=== PATIENT | female | born 1945 | race Caucasian/White ===

== ENCOUNTER → 2021-08-22 | Outpatient (CLI) | payer MEDICARE | END | disposition home or self-care (01) | LOC: LAB 15:52 | PROVIDERS: ATTEND Family Medicine | DX: M25.572 Pain in left ankle and joints of left foot (principal) | CPT/HCPCS: 73590; 73610 ==

== ENCOUNTER 2024-07-06 13:37 | Emergency (ER) | payer MEDICARE ==
[~2024-07-06] VITALS: Ht 152.4 cm; Wt 54.4 kg
--- NOTE | 2024-07-06 14:02 | ERN ---
ED Note History of Present Illness Stated Complaint: FORGETFULLNESS AND ANXIETY Chief Complaint: Altered Mental Status Time Seen by MD: 13:47 Dictation: Patient PATIENT IS AN 79-YEAR-OLD FEMALE WHO PRINCIPAL SINCE TO THE EMERGENCY ROOM VIA EMS AFTER A NEIGHBOR CALLED. PER EMS, THE NEIGHBOR SAID SHE CAME TO HER HOME AROUND 13:00 HOURS TODAY WAS VERY CONFUSED AND NOT ACTING HERSELF DID NOT KNOW WHERE SHE WAS OR WHAT WAS GOING ON. SHE STATES PATIENT LIVES ALONE SO LAST KNOWN WELL TIME IS UNKNOWN. CURRENTLY PATIENT IS ALERT AND ORIENTED X1 , ABLE TO ANSWER SIMPLE QUESTIONS REGARDING HER NAME HOWEVER DOES NOT KNOW WHERE SHE IS AT. SHE DOES NIGHT DENIES ANY CHEST PAIN BACK PAIN SOB. NO DRIFT NOTED. SPEECH IS CLEAR. Patient's friend need a at bedside. She was able to find a list of patient's past medical history medications, patient has a history of hypothyroidism, osteoporosis lash hypertension and breast cancer completed her treatment with in 2019. Patient's primary care doctors Dr. Erick Kwon Allergies: Coded Allergies: No Known Drug Allergies (Unverified Allergy, Unknown, 07/06/24) Past Medical History Past Medical History: Cancer Additional Past Medical Hx: BREAST CA Surgical History: Unknown History: Not Applicable RN Note Reviewed/Agreed w/PFSH: Yes Review of System Dictation CONSTITUTIONAL: NEGATIVE EXCEPT FOR HPI HEAD/FACE: NEGATIVE EXCEPT FOR HPI EENT: NEGATIVE EXCEPT FOR HPI RESPIRATORY: NEGATIVE EXCEPT FOR HPI GASTROINTESTINAL/ABDOMINAL: NEGATIVE EXCEPT FOR HPI GENITOURINARY: NEGATIVE EXCEPT FOR HPI MUSCULOSKELETAL: NEGATIVE EXCEPT FOR HPI INTEGUMENTARY: NEGATIVE EXCEPT FOR HPI NEUROLOGICAL/PSYCH: NEGATIVE EXCEPT FOR HPI ALTERED MENTAL STATUS/CONFUSION HEMATOLOGIC/LYMPHATIC: NEGATIVE EXCEPT FOR HPI ALL SYSTEMS NEGATIVE, EXCEPT NOTED ABOVE. 13 POINT REVIEW OF SYSTEMS ASSESSED AND ALL NEGATIVE EXCEPT FOR ABOVE. Initial Vital Sign VS Vital Signs Date Time Temp Pulse Resp B/P (MAP) Pulse Ox O2 Delivery O2 Flow Rate FiO2 07/06/24 13:40 68 16 156/85 99 0 07/06/24 13:50 98.2 Room Air* 21 Physical Exam Dictation VITAL SIGNS REVIEWED GENERAL APPEARANCE: ALERT, ORIENTED X 1, NO ACUTE DISTRESS, WELL DEVELOPED, NOURISHED. HEAD AND FACE: NON-TRAUMATIC. EYES: PERRL, PINK CONJUNCTIVAS, EYELID NO TRAUMA, ANTERIOR CHAMBER WITH ARCUS SENILIS. EARS: PINNAS INTACT AND NO SIGNS OF TRAUMA OR ERYTHEMA EAR CANALS CLEAR AND NO DISCHARGE TM NO ERYTHEMA NOSE: NO DISCHARGE, NO BLEEDING. OROPHARYNX: MOUTH NORMAL, TONGUE PINK, PHARYNX CLEAR,NO ERYTHEMA, TONSILS NO EXUDATES, NO ABSCESSES NOTED, MUCOUS MEMBRANE MOIST NECK: SUPPLE, NON-TENDER, NO THYROMEGALY, NO MASSES, NO JVD, NO BRUITS BREAST:DEFERRED CHEST:NO TENDERNESS, NO CREPITUS, NO PARADOXICAL MOVEMENT, NO RETRACTIONS LUNGS:CLEAR, WELL-VENTILATED, SYMMETRIC, NO RALES, NO WHEEZING, NO RHONCHI, NO STRIDOR, GOOD BREATH SOUNDS BILATERALLY HEART: REGULAR RATE, REGULAR RHYTHM, NO MURMUR, NO GALLOPS VASCULAR: NO PERIPHERAL EDEMA, ABDOMEN: SOFT, POSITIVE BOWEL SOUNDS, NONDISTENDED, NO GUARDING, NONTENDER, NO REBOUND, NO MASSES NO HEPATOMEGALY, NO SPLENOMEGALY, NO ESCOBAR'S SIGN, NO HERNIAS. RECTAL: DEFERRED GENITAL: DEFERRED NEUROLOGICAL: NORMAL SPEECH, MOTOR FUNCTION INTACT, SENSORY FUNCTION INTACT GAIT IS STEADY MOVING ALL EXTREMITIES 5/5 BILATERALLY. CRANIAL NERVES GROSSLY INTACT. PATIENT GLOBALLY CONFUSED MUSCULOSKELETAL: NECK NONTENDER, FULL RANGE OF MOTION, BACK NONTENDER, FULL RANGE OF MOTION, EXTREMITIES: NONTENDER, FULL RANGE OF MOTION SKIN: COLOR PINK, DRY, NO TURGOR, NO RASH, NO LACERATIONS, NO ABRASIONS, NO C ONTUSIONS. LYMPHATIC: DEFERRED Results (Laboratory/Radiology) Laboratory/Radiology Laboratory Tests Test 07/06/24 14:07 07/06/24 15:18 White Blood Count 5.3 K/uL (4.8-10.8) Red Blood Count 4.60 MIL/uL (4.00-5.50) Hemoglobin 13.8 g/dL (12.0-16.0) Hematocrit 39.5 % (36-48) Mean Corpuscular Volume 85.9 fL (79-99) Mean Corpuscular Hemoglobin 30.0 pg (27.0-33.0) Mean Corpuscular Hemoglobin Concent 34.9 g/dL (32.0-36.0) Red Cell Distribution Width 12.1 % (11.0-15.5) Platelet Count 210 K/uL (130-400) Mean Platelet Volume 11.2 fL (7.5-10.5) H Immature Granulocyte % (Auto) 0.4 % (0-1) Neutrophils (%) (Auto) 76.8 % (40.0-77.0) Lymphocytes (%) (Auto) 15.6 % (21.0-51.0) L Monocytes (%) (Auto) 6.6 % (3.0-13.0) Eosinophils (%) (Auto) 0.2 % (0.0-8.0) Basophils (%) (Auto) 0.4 % (0.0-5.0) Neutrophils # (Auto) 4.1 K/uL (1.8-7.7) Lymphocytes # (Auto) 0.8 K/uL (1.0-4.8) L Monocytes # (Auto) 0.4 K/uL (0.1-1.0) Eosinophils # (Auto) 0.01 K/uL (0.00-0.70) Basophils # (Auto) 0.02 K/uL (0.00-0.20) Absolute Immature Granulocyte (auto 0.02 K/uL (0-1) Nucleated Red Blood Cells 0.0 % (0.0-0.19) Prothrombin Time 10.7 SEC (9.6-11.6) Prothromb Time International Ratio 0.95 (0.85-1.15) Activated Partial Thromboplast Time 25.5 SEC (26.3-35.5) L Sodium Level 142 mmol/L (136-145) Potassium Level 3.7 mmol/L (3.5-5.1) Chloride Level 103 mmol/L (101-111) Carbon Dioxide Level 25 mmol/L (21-32) Blood Urea Nitrogen 10 mg/dL (7-18) Creatinine 0.9 mg/dL (0.5-1.0) Glomerular Filtration Rate Calc 65 mL/min (>90) Random Glucose 101 mg/dL (70-105) Total Calcium 9.5 mg/dL (8.5-10.1) Ammonia < 10 umol/L (11-32) L Troponin I High Sensitivity 8 ng/L (4-50) Urine Color STRAW (YELLOW) Urine Appearance CLEAR (CLEAR) Urine pH 8.0 (5.0-8.0) Urine Specific [place] 1.002 (1.001-1.031) Urine Protein NEGATIVE mg/dL (NEGATIVE) Urine Glucose (UA) NEGATIVE mg/dL (NEGATIVE) Urine Ketones 10 mg/dL (NEGATIVE) H Urine Occult Blood NEGATIVE (NEGATIVE) Urine Nitrate NEGATIVE (NEGATIVE) Urine Bilirubin NEGATIVE mg/dL (NEGATIVE) Urine Urobilinogen 0.2 mg/dL (0.2-1.0) Urine Leukocyte Esterase 75 Alonzo/uL (NEGATIVE) H Urine RBC 0-1 /HPF (0-1) Urine WBC 6-10 /HPF (0-1) H Urine Squamous Epithelial Cells RARE /HPF (0-2) Urine Bacteria RARE /HPF (None Seen) HNIQUE: Noncontrast axial helical CT images from the vertex through the skull base using 5 mm slice thickness without contrast material. Coronal and sagittal reconstructions were also included. Dose reduction techniques was used using integrated, automated and adaptive dose reduction exposure control. CT was performed with one or more of the following dose reduction techniques: Automated exposure control, adjustment of the mA and/or kV according to patient size, or use of iterative reconstruction technique. COMPARISON: None FINDINGS: Scattered and coalescent subcortical and periventricular white matter low attenuating areas likely represent residual of chronic small vessel arteriopathy and/or remote vascular insult. Generalized mild cerebral cortical atrophy is present.. No evidence for abnormal extra-axial fluid collections or masses. Severe hydrocephalus noted. No evidence for intracranial parenchymal, epidural, or subdural hemorrhage, mass effect or midline shift. The sue-white matter differentiation is well preserved. No secondary evidence to suggest acute ischemia. Mild calcific plaque is present along the abdul of the cavernous segments of both internal carotid arteries. The brainstem and cerebellum appear normal. The visualized orbits appear unremarkable. The visible paranasal sinuses and mastoid air cells are clear. The calvarium appears normal. IMPRESSION: Severe hydrocephalus more than expected for degree of brain atrophy, and consistent with normal pressure hydrocephalus until proven otherwise. Labs Reviewed?: Yes EKG Comment: EKG sinus rhythm/heart rate 71/occasional PAC/nonspecific changes to leads two and three ED Course ED Course Orders Procedure Category Date Status Time Ct Head/Brain W/O CT 07/06/24 Resulted Contrast 13:56 Pt And Ptt LAB 07/06/24 Complete 13:56 Cbc With Differential LAB 07/06/24 Complete 13:56 Troponin I High LAB 07/06/24 Complete Sensitivity 13:56 Urinalysis Profile LAB 07/06/24 Complete 13:56 12 Lead Ekg Tracing- EKG 07/06/24 Complete Technical 13:56 Chest 1vw RAD 07/06/24 Resulted 13:56 Basic Metabolic Panel LAB 07/06/24 Complete 13:56 Ammonia LAB 07/06/24 Complete 14:02 Culture Urine LAURI 07/06/24 Complete 15:26 Vital Signs Date Time Temp Pulse Resp B/P (MAP) Pulse Ox O2 Delivery O2 Flow Rate FiO2 07/06/24 18:34 98.2 71 18 152/68 98 Room Air* 0 21 07/06/24 16:08 98.2 66 18 159/66 100 Room Air* 0 21 07/06/24 13:50 98.2 76 18 169/61 100 Room Air* 0 21 07/06/24 13:40 68 16 156/85 99 0 15:00 hours spoke to Nicole RN water service supervisor and made her aware of need for neurosurgical transport and consultation due to hydrocephalus. Additionally spoke with my ER physician Dr. Cast and made her aware of my acute f indings on the CT and I we will be performing an SSC in initiating a transfer to higher level of care. 1505/spoke with on [facility] neuro consultation and he agreed to evaluate patient. Spoke with patient at bedside with her friend, Cheri and made them aware of the need for transfer to higher level of care and neurosurgical consultation both agree. Patient remains neurologically intact other than confusion however cranial nerves moving all extremities 5/5 no drift\ 1555/ spoke with /neurosurgery and reviewed CT labs and patient's history. He agreed to consult on the patient and wants ER to ER transfer. He is steady additionally wants copies of patient's medical record she has with her as well as a CT scan disc. This information was passed on Negrito charge poster 1605/spoke with ER physician at [facility] and discussed CT findings and patient's physical exam she agreed to accept patient ER to ER transfer. Medical Decision Making MDM MDM: Differential diagnosis: CVA/UTI/hydrocephalus/ACS/AMI/electrolyte imbalance/dehydration Rationale: Tests considered and ordered secondary to shared decision making include: EKG/labs/radiology/[facility] consultation Previous outside records reviewed: Old ER visits. Reviewed Risk of complication and/or morbidity or mortality of patient management: Moderate Medications-Per medication reconciliation Need for hospitalization: Patient does not meet criteria for hospitalization. Patient does meet criteria for transfer to higher level of care for neurosurgical consultation Need for emergency major/minor surgery: Possible bur holes There are no social concerns with this patient. Prescription drug management Prescriptions will include symptomatic care Patient's prior external medical records from other ER visits were reviewed by me as indicated. Prior testing and results from previous visits were reviewed. Prior tests were taken into account with medical decision making and resource utilization, independent historian/historians were used to obtain complete medical history. I independently interpreted the test that were performed, results were reviewed by me and considered findings on radiology if ordered. Medical management and examination interpretation discussions were had by me with other qualified healthcare professionals as indicated for the patient's care. DX & DISP Disposition: Transfer Decision to Admit Time: 15:34 Departure Impression: Primary Impression: Hydrocephalus Additional Impressions: Stage 2 chronic kidney disease, Altered mental status Condition: Stable Referrals: SELF,REFERRAL (PCP) Time of Disposition: 16:05 I have reviewed the case, and I agree with, Diagnosis and Plan I performed this substantive portion of this visit. I have reviewed and personally made and approve the management plan that is documented in the note by myself or the ELISA. I acknowledge full responsibility for the patient's management plan. AMBROSE BUSTAMANTE NP Jul 06, 2024 14:02 DAMEON CAST MD Jul 07, 2024 15:06
[2024-07-06 14:20] LABS: BASOPHILS # (AUTO) 0.02 K/uL (0.00-0.20); BASOPHILS % (AUTO) 0.4 % (0.0-5.0); EOSINOPHILS # (AUTO) 0.01 K/uL (0.00-0.70); EOSINOPHILS % (AUTO) 0.2 % (0.0-8.0); HEMATOCRIT 39.5 % (36-48); IMMATURE GRANULOCYTE ABSOLUTE 0.02 K/uL (0-1); LYMPHOCYTES # (AUTO) 0.8 K/uL (1.0-4.8); LYMPHOCYTES % (AUTO) 15.6 % (21.0-51.0); MEAN CORPUSCULAR HGB CONC 34.9 g/dL (32.0-36.0); MEAN CORPUSCULAR VOLUME 85.9 fL (79-99); MONOCYTES # (AUTO) 0.4 K/uL (0.1-1.0); MONOCYTES % (AUTO) 6.6 % (3.0-13.0); NEUTROPHILS # (AUTO) 4.1 K/uL (1.8-7.7); NEUTROPHILS % (AUTO) 76.8 % (40.0-77.0); PLATELET COUNT (AUTO) 210 K/uL (130-400); RED CELL DISTRIBUTION WIDTH 12.1 % (11.0-15.5); WHITE BLOOD COUNT (AUTO) 5.3 K/uL (4.8-10.8)
[2024-07-06 14:29] LABS: CREATININE 0.9 mg/dL (0.5-1.0); POTASSIUM 3.7 mmol/L (3.5-5.1)
[2024-07-06 14:30] LABS: INR 0.95 (0.85-1.15); PROTHROMBIN TIME 10.7 SEC (9.6-11.6)
[2024-07-06 14:31] LABS: PARTIAL THROMBOPLASTIN TIME 25.5 SEC (26.3-35.5)
--- NOTE | 2024-07-06 14:46 | HMCIMG ---
CT HEAD WITHOUT CONTRAST INDICATION: TECHNIQUE: Noncontrast axial helical CT images from the vertex through the skull base using 5 mm slice thickness without contrast material. Coronal and sagittal reconstructions were also included. Dose reduction techniques was used using integrated, automated and adaptive dose reduction exposure control. CT was performed with one or more of the following dose reduction techniques: Automated exposure control, adjustment of the mA and/or kV according to patient size, or use of iterative reconstruction technique. COMPARISON: None FINDINGS: Scattered and coalescent subcortical and periventricular white matter low attenuating areas likely represent residual of chronic small vessel arteriopathy and/or remote vascular insult. Generalized mild cerebral cortical atrophy is present.. No evidence for abnormal extra-axial fluid collections or masses. Severe hydrocephalus noted. No evidence for intracranial parenchymal, epidural, or subdural hemorrhage, mass effect or midline shift. The sue-white matter differentiation is well preserved. No secondary evidence to suggest acute ischemia. Mild calcific plaque is present along the abdul of the cavernous segments of both internal carotid arteries. The brainstem and cerebellum appear normal. The visualized orbits appear unremarkable. The visible paranasal sinuses and mastoid air cells are clear. The calvarium appears normal. IMPRESSION: Severe hydrocephalus more than expected for degree of brain atrophy, and consistent with normal pressure hydrocephalus until proven otherwise. Chronic white matter ischemic changes, mild brain atrophy, and arteriosclerotic disease as described, without acute component.
--- NOTE | 2024-07-06 14:47 | HMCIMG ---
PORTABLE CHEST RADIOGRAPH INDICATION: CHEST PAIN/SOB COMPARISON: None FINDINGS: Heart size is normal. The pulmonary vascularity and reji appear normal. No abnormal pulmonary parenchymal opacity or consolidation identified. No significant pleural effusion noted. No pneumothorax detected. Moderate hiatal hernia. IMPRESSION: No radiographic evidence for any acute cardiopulmonary process. Moderate hiatal hernia.
--- NOTE | 2024-07-06 15:20 | NUR ---
SOC (DR MEDRANO) SPOKE TO PT AND CLOSE FRIEND VIA TELEMONITOR FOR EVALUATION/ASSESSMENT
[2024-07-06 15:25] LABS: APPEARANCE,URINE CLEAR (CLEAR); BILIRUBIN,URINE NEGATIVE (NEGATIVE); GLUCOSE, URINE (UA) NEGATIVE (NEGATIVE); KETONES,URINE 10 mg/dL (NEGATIVE); LEUKOCYTE ESTERASE ,URINE 75 Leu/uL (NEGATIVE); NITRATE,URINE NEGATIVE (NEGATIVE); OCCULT BLOOD,URINE NEGATIVE (NEGATIVE); PROTEIN,URINE NEGATIVE (NEGATIVE); UROBILINOGEN,URINE 0.2 mg/dL (0.2-1.0)
[2024-07-06 15:26] LABS: ADD UA MICROSCOPIC YES; COLOR,URINE STRAW (YELLOW)
[2024-07-06 15:28] LABS: BACTERIA,URINE RARE /HPF (None Seen); RBC,URINE 0-1 /HPF (0-1); SQUAMOUS EPITHELIAL CELL,UR RARE /HPF (0-2)
--- NOTE | 2024-07-06 16:13 | CONS ---
CONSULT NOTE: [place] [facility] Note # Demographics Consult Type: General Neurology Patient Location: Emergency Room First Name: NAYELI FRANCO Last Name: FRANKY Date of : 1945 Age: 79 Gender: Female Facility: [facility] Time of Initial Page (Central Time): 07/06/2024, 14:58 Time of Return Call (Central Time): 07/06/2024, 14:58 # HPI History: 79 F unknown past medical hx. She lives alone. Neighbor found her around 1 pm - confused and thus called EMS. She was last seen normal by neighbor (who is at bedside) : before Xmas. Patients states she had not interacted with anyone since Xmas - when she was with her friends. Neighbor spoke with patient last Saturday 06/30 on the phone and she didn't seem confused at that time. She had been feeling unwell which why she did not leave the house. She was assigned NIHSS 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 does not have headache at this time. Meds per list from neighbor. levothyroxine statin amlodipine alendronate gabapentin tramadol zinc vit E Dr. Limon was her PCP but they retired Last Known Normal: 06/30 # Scores Time of exam and NIHSS (Central Time): 07/06/2024, 15:30 Level of Consciousness 1a: [0] = Alert; keenly responsive LOC Questions 1b: [0] = Answers both questions correctly LOC Commands 1c: [0] = Performs both tasks correctly Best Gaze 2: [0] = Normal Visual 3: [0] = No visual loss Facial Palsy 4: [0] = Normal symmetrical movements Motor Arm Left 5a: [0] = No drift Motor Arm Right 5b: [0] = No drift Motor Leg Left 6a: [0] = No drift Motor Leg Right 6b: [0] = No drift Limb Ataxia 7: [0] = Absent Best Language 9: [0] = No aphasia Dysarthria 10: [0] = Normal NIHSS Total: 0 # Assessment Impression: #Ventriculomegaly given change in mental status there is concern for hydrocephalus - ED team is working to transfer patient to higher level of care for NSGY evaluation - ?NPH as possibly differential diagnosis - gait was not tested as evaluation was via video interface - consider MRI brain with gadolinium would also consider other causes for altered mentation: #Encephalopathy - check TSH, B12, Ammonia, RPR, UA - if ETOH hx consider Thiamine bolus - if unknown would empirically treat - Consider lumbar puncture to evaluate for possible SURGICAL SERVICES ASSISTANT infection if c/f infection - routine EEG - MRI brain ideally with gadolinium, when able - routine neuro checks - hold sedating medications if able to allow for mental status to improve [consider lowering dose of gabapentin. holding GBP can cause w/d symptoms such as seizures] - delirium precautions with day/night orientation - recommend to touch base with family to see if any concerns for intoxication or possibly withdrawal (including medications) #?headache - intermittent - 2/2 to occipital neuralgia? # Plan Labs: - Ammonia - B12 - thiamine Imaging: (urgency: routine): - MRI Brain with AND without contrast Diagnostic Test: - EEG Other: - If patient has any neurological deterioration please call me back immediately # Logistics Attestation of consult completion: The patient is located at: [facility]. Facility staff participated in the visit. I performed this telemedicine visit from my offsite office utilizing interactive 2 way audio and visual telecommunication technology. Total time spent in telemedicine encounter: I spent 16 minutes reviewing clinical data and/or imaging, obtaining history, examining the patient, communicating with the onsite care team, and in preparation of this report. # Demographics First Name: NAYELI FRANCO Last Name: FRANKY Facility: [facility] Electronically signed at 07/06/2024 16:10 (Central Time) by DO JUDITH Cruz JAYESH P DO Jul 06, 2024 16:13
--- NOTE | 2024-07-06 16:30 | NUR ---
CD ROM WAS DELIVERED TO CERTIFIED WELDING INSPECTOR TO BE PLACED IN TRANSFER PACKET
--- NOTE | 2024-07-06 16:34 | NUR ---
REPORT GIVEN TO CALVIN THOMAS RN AT [facility] FOR ED TO ED TRANSFER. [facility] ALSO NOTIFIED AT THIS TIME.
--- NOTE | 2024-07-06 18:06 | NUR ---
EMS TRANSFER PER [facility] DISPATCH, THERE IS A CREW EN ROUTE TO MANAGER PRINT PT FOR TRANSFER
--- NOTE | 2024-07-06 18:24 | NUR ---
[id number] JUST ARRIVED AND RECEIVED PT REPORT. THEY WILL BE TRANSPORTING PT TO [facility]
[2024-07-06 18:34] VITALS: BP 152/68; PULSE 71; RESP 18; TEMP 98.2; O2SAT 98
--- NOTE | 2024-07-06 23:44 | EKG ---
[facility] Test Date: 2024-07-06 Test Time: 14:03:54 Pat Name: NAYELI WILKINS Department: [facility] Room: Gender: Female Blood Donor Unit Assistant: [id number] : 1945 Requested By: AMBROSE BUSTAMANTE Order Number: [id number] Reading MD: Measurements Intervals [place] Rate: 71 P: 45 [place]: 148 QRS: -9 QRSD: 95 T: 11 QT: 432 QTc: 454 Interpretive Statements Sinus rhythm Atrial premature complexes Inferior infarct, old No previous ECG available for comparison Please click the below link to view image of tracing.
== END 2024-07-06 18:35 | disposition short-term general hospital (02) ==
LOC: EDH 13:37
DX: G91.9 Hydrocephalus, unspecified (principal); R41.82 Altered mental status, unspecified; N18.2 Chronic kidney disease, stage 2 (mild); F41.9 Anxiety disorder, unspecified; Z79.01 Long term (current) use of anticoagulants
CPT/HCPCS: 36415; 70450; 71045; 80048; 81001; 82140; 84484; 85025; 85610; 85730; 87086; 93005; 99285